=== PATIENT | male | born 1960 ===

== ENCOUNTER 2017-07-09 02:10 | Inpatient (IN) | payer MEDICARE, OTHER ==
[2017-07-09 02:25] VITALS: BMI 28.2
[2017-07-09 04:26] LABS: URINE BILIRUBIN NEGATIVE (NEGATIVE); URINE BLOOD NEGATIVE (NEGATIVE); URINE CLARITY CLEAR (Clear); URINE COLOR YELLOW (YELLOW); URINE GLUCOSE (UA) >=500 mg/dL (Normal); URINE LEUKOCYTE ESTERASE NEG Leu/uL (Negative); URINE NITRATE NEGATIVE (NEGATIVE); URINE PROTEIN NEGATIVE (NEGATIVE); URINE UROBILINOGEN 0.2-1.0 mg/dL (0.2-1.0)
[2017-07-09 04:35] LABS: BASO % 0.4 % (0.0-2.0); EOS % 0.3 % (0.0-4.0); HEMOGLOBIN 13.5 g/dL (12.0-18.0); LYMPH # 1.2 K/uL (1.0-4.3); LYMPH % 10.5 % (20.0-40.0); MEAN CELL VOLUME 84.3 fl (80.0-94.0); MEAN CORPUSCULAR HEMOGLOBIN 29.3 pg (27.0-31.0); MEAN CORPUSCULAR HGB CONC 34.8 g/dL (33.0-37.0); MEAN PLATELET VOLUME 8.9 fl (7.2-11.7); MONO # 0.5 K/uL (0.0-0.8); MONO % 4.2 % (0.0-10.0); NEUT # 9.5 K/uL (1.8-7.0); NEUT % 84.6 % (50.0-75.0); RBC 4.61 Mil/uL (4.40-5.90); RED CELL DISTRIBUTION WIDTH 12.9 % (11.5-14.5); WHITE BLOOD COUNT 11.2 K/uL (4.8-10.8)
[2017-07-09 04:43] LABS: BARBITURATES, UR NEGATIVE (NEGATIVE); BENZODIAZEPINES, UR NEGATIVE (NEGATIVE); OPIATES, UR NEGATIVE (NEGATIVE); PHENCYCLIDINE, UR NEGATIVE (NEGATIVE)
[2017-07-09 04:47] LABS: ALB/GLOB RATIO 1.3 (1.0-2.1); ALBUMIN 4.3 g/dL (3.5-5.0); ALT/SGPT 29 U/L (21-72); AST/SGOT 49 U/L (17-59); BLOOD UREA NITROGEN 6 mg/dl (9-20); CALCIUM 9.2 mg/dL (8.4-10.2); GFR AFRICAN-AMERICAN > 60; GFR NON-AFRICAN AMERICAN > 60; LIPASE 48 U/L (23-300)
--- NOTE | 2017-07-09 05:05 | ED PDOC ---
HPI: Abdomen Time Seen by Provider: 07/09/17 02:54 Chief Complaint (Nursing): Abdominal Pain Chief Complaint (Provider): Abdominal Pain History Per: Patient, Other (Quality Systems Specialist) History/Exam Limitations: clinical condition (Dementia) Current Symptoms Are (Timing): Still Present Associated Symptoms: denies: Fever, Chest Pain Additional Complaint(s): 57 year old male presents to ED with complaints of abdominal pain, nausea, and vomiting and has a past medical history of bipolar disorder and dementia. Patient is brought to the ED for a crisis evaluation. On arrival, patient complains of nausea, vomiting (x1 episode non-bloody, non-bilious), and abdominal pain. (-) fever, cough, SOB, or chest pain. On arrival to ED patient initially denies any medical complaint and appears to be laughing as well as responding to internal stimuli. PCP: Ned Past Medical History Reviewed: Historical Data, Nursing Documentation, Vital Signs Vital Signs: Last Vital Signs Temp 98.0 F 07/09/17 16:13 Pulse 91 H 07/09/17 16:13 Resp 17 07/09/17 16:13 BP 102/65 07/09/17 16:13 Pulse Ox 98 07/09/17 20:04 - Medical History PMH: Bipolar Disorder, Dementia, Multiple Sclerosis Denies: No Chronic Diseases, Diabetes, Hepatitis, HIV, HTN, Chronic Kidney Disease, Seizures, Sexually Transmitted Disease - Family History Family History: States: Unknown Family Hx - Social History Alcohol: Other ((+) drinker) - Immunization History Hx Tetanus Toxoid Vaccination: No Hx Influenza Vaccination: No Hx Pneumococcal Vaccination: No - Home Medications Home Medications: Ambulatory Orders Medication Instructions Recorded Thiamine [Vitamin B1 Tab] 100 mg PO DAILY #0 tab 08/08/14 QUEtiapine [SEROquel] 100 mg PO HS #0 tab 11/23/14 Folic Acid 1 mg PO DAILY 11/22/15 Divalproex [Depakote ER] 500 mg PO BID #0 ter 11/25/15 Folic Acid 1 mg PO DAILY #0 tab 11/25/15 metFORMIN [glucOPHAGE] 500 mg PO BID #60 tab 11/25/15 - Allergies Allergies/Adverse Reactions: Allergies Allergy/AdvReac Type Severity Reaction Status Date / Time No Known Allergies Allergy Verified 11/22/15 14:24 Review of Systems ROS Statement: Except As Marked, All Systems Reviewed And Found Negative Constitutional: Negative for: Fever Cardiovascular: Negative for: Chest Pain Respiratory: Negative for: Cough, Shortness of Breath Gastrointestinal: Positive for: Nausea, Vomiting, Abdominal Pain Physical Exam - Reviewed Nursing Documentation Reviewed: Yes Vital Signs Reviewed: Yes - Physical Exam Appears: Positive for: Non-toxic, No Acute Distress Skin: Positive for: Normal Color, Warm, Dry Eye Exam: Positive for: Normal appearance Cardiovascular/Chest: Positive for: Regular Rate, Rhythm, Tachycardia Respiratory: Positive for: Normal Breath Sounds. Negative for: Respiratory Distress Gastrointestinal/Abdominal: Positive for: Soft, Tenderness (mild epigastric tenderness) Back: Positive for: Normal Inspection Extremity: Positive for: Normal ROM. Negative for: Deformity Neurologic/Psych: Positive for: Alert, Mood/Affect (affect flat), Other ( appears internally preoccupied). Negative for: Oriented (only oriented to person - baseline) - Laboratory Results Result Diagrams: 07/09/17 04:32 07/09/17 04:32 - ECG O2 Sat by Pulse Oximetry: 98 (RA) Pulse Ox Interpretation: Normal - Critical Care Total Time (In Min): 30 Medical Decision Making Medical Decision Makin Initial impression: abdominal pain Initial plan: * EKG * EtOH serum * Labs * UDrug screen * Lipase * UDip * Zofran Inj 4mg IVP * Accucheck * UA * Re-eval 0415 * Crisis eval * Bentyl 20mg PO * Pepcid 20mg IV * Re-eval 0505 Patient denies chest pain. Discussed EKG (sent for his viewing) with Dr. Johsnon (code heart rn lactation), who confers that patient's EKG is not indicative of STEMI. 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 Brother asked patient about chest pain which the patient continued to deny. Discussed case with Dr. Calderon, who accepts patient under his care for OBS TELE - chest pain. * Trop I * CXR * ASA 324mg PO * Morphine 4mg IVP * Nitroglycerin 2% I ea TOP * Re-eval 0607 Troponin: 3.77 Patient continues to deny chest pain however remains a poor historian. It is unclear whether impairment is not allowing patient to understand the questions being asked. * Lovenox 80mg SC, Hmacivehc48 mg po Admission order changed to INPATIENT TELE for ACS. 06 Chest Xray NAD Patient placed on 1:1 due to his psychiatric condition and inability to readily follow instruction. Family has left bedside. Scribe Attestation: Documented by Светлана Mccoy acting as a scribe for Larry Murphy MD. Scribe Attestation: All medical record entries made by the Scribe were at my direction and personally dictated by me. I have reviewed the chart and agree that the record accurately reflects my personal performance of the history, physical exam, medical decision making, and the department course for this patient. I have also personally directed, reviewed, and agree with the discharge instructions and disposition. Disposition - Clinical Impression Clinical Impression: Acute coronary syndrome - Patient ED Disposition Is Patient to be Admitted: Yes - Disposition Disposition Time: 05:20 Condition: GUARDED - Pt Status Changed To: Hospital Disposition Of: Inpatient (OBS TELE) - Admit Certification Admit to Inpatient:: After my assessment, the patient will require hospitalization for at least two midnights. This is because of the severity of symptoms shown, intensity of services needed, and/or the medical risk in this patient being treated as an outpatient.
[2017-07-09] MEDS ORDERED: Morphine 4 MG/ML VIAL IVP ONE (05:06)
[2017-07-09] MEDS ORDERED: Nitroglycerin 2% Ointment Foilpak UD TOP STA (05:19)
[2017-07-09] MEDS ORDERED: Nitroglycerin 2% Ointment Foilpak UD TOP ONE (05:33)
[2017-07-09] MEDS ORDERED: Morphine 4 MG/ML VIAL ONE (05:33)
--- NOTE | 2017-07-09 05:35 | CP.PCM.HP ---
History of Present Illness - History of Present Illness History of Present Illness: CC: Abd pain, nausea, CP; crisis eval HPI: This is a 57 y/o male with HTN, DM2, bipolar and ?dementia among other conditions who was brought in for crisis eval. He did c/o abd pain, CP, n/v in the ER as well. Denies SOB, cough, f/c currently. Patient is a rather poor historian, and unable to provide much other relevant information. Brother who is with him states main complaint has been 'abdominal pain' PCP: Ned ARTEAGA: Patient unable to provide clear info MHx: HTN, DM2, bipolar disorder, ?dementia, ?MS SHx: None Allergies: NKDA Medications: Per med rec Family Hx: Reviewed, patient cannot provide relevant info Social Hx: Lives at home, no tobacco or EtOH Present on Admission - Present on Admission Any Indicators Present on Admission: No Past Patient History - Past Medical History & Family History Past Medical History?: Yes - Past Social History Alcohol: Other ((+) drinker) - CARDIAC Hx Hypertension: No - PULMONARY Hx Tuberculosis: No - NEUROLOGICAL Hx Dementia: Yes Hx Multiple Sclerosis: Yes Hx Seizures: No - HEENT Hx HEENT Problems: No - RENAL Hx Chronic Kidney Disease: No - ENDOCRINE/METABOLIC Hx Endocrine Disorders: Yes Hx Diabetes Mellitus Type 2: Yes - HEMATOLOGICAL/ONCOLOGICAL Hx Human Immunodeficiency Virus (HIV): No - INTEGUMENTARY Hx Dermatological Problems: No - MUSCULOSKELETAL/RHEUMATOLOGICAL Hx Falls: No - GASTROINTESTINAL Hx Gastrointestinal Disorders: No - GENITOURINARY/GYNECOLOGICAL Hx Sexually Transmitted Disorders: No - PSYCHIATRIC Hx Bipolar Disorder: Yes - SURGICAL HISTORY Hx Surgeries: (unable to obtain) - ANESTHESIA Hx Anesthesia: (unknown) Meds Allergies/Adverse Reactions: Allergies Allergy/AdvReac Type Severity Reaction Status Date / Time No Known Allergies Allergy Verified 11/22/15 14:24 Physical Exam - Constitutional Appears: No Acute Distress - Head Exam Head Exam: ATRAUMATIC, NORMOCEPHALIC - Eye Exam Eye Exam: EOMI, PERRL - ENT Exam ENT Exam: Mucous Membranes Moist - Neck Exam Neck exam: Positive for: Full Rom - Respiratory Exam Respiratory Exam: Clear to Auscultation Bilateral, NORMAL BREATHING PATTERN - Cardiovascular Exam Cardiovascular Exam: REGULAR RHYTHM, +S1, +S2 - GI/Abdominal Exam GI & Abdominal Exam: Normal Bowel Sounds, Soft, Tenderness - Extremities Exam Extremities exam: Positive for: full ROM, normal inspection - Neurological Exam Additional comments: Patient is awake, answers some questions but mostly not - Psychiatric Exam Psychiatric exam: Normal Affect, Normal Mood - Skin Skin Exam: Dry, Warm Results - Vital Signs Recent Vital Signs: Last Vital Signs Temp 98.2 F 07/09/17 02:25 Pulse 116 H 07/09/17 02:25 Resp 16 07/09/17 02:25 BP 198/101 H 07/09/17 02:25 Pulse Ox 98 07/09/17 05:25 - Labs Result Diagrams: 07/09/17 04:32 07/09/17 04:32 Labs: Laboratory Results - last 24 hr 07/09/17 07/09/17 07/09/17 04:19 04:19 04:32 WBC RBC Hgb Hct MCV MCH MCHC RDW Plt Count MPV Neut % (Auto) Lymph % (Auto) [place] % (Auto) Eos % (Auto) Baso % (Auto) Neut # (Auto) Lymph # (Auto) [place] # (Auto) Eos # (Auto) Baso # (Auto) Sodium 134 Potassium 3.8 Chloride 98 Carbon Dioxide 22 Anion Gap 18 BUN 6 L Creatinine 0.7 L Est GFR ( Amer) > 60 Est GFR (Non-Af Amer) > 60 POC Glucose (mg/dL) Random Glucose 247 H Calcium 9.2 Total Bilirubin 0.7 AST 49 ALT 29 Alkaline Phosphatase 56 Total Protein 7.7 Albumin 4.3 Globulin 3.4 Albumin/Globulin Ratio 1.3 Lipase 48 Urine Color Yellow Urine Clarity Clear Urine pH 6.0 Ur Specific [place] 1.014 Urine Protein Negative Urine Glucose (UA) >=500 Urine Ketones Negative Urine Blood Negative Urine Nitrate Negative Urine Bilirubin Negative Urine Urobilinogen 0.2-1.0 Ur Leukocyte Esterase Neg Urine RBC (Auto) 2 Urine Microscopic WBC < 1 Urine Opiates Screen Negative Urine Methadone Screen Negative Ur Barbiturates Screen Negative Ur Phencyclidine Scrn Negative Ur Amphetamines Screen Negative U Benzodiazepines Scrn Negative U Oth Cocaine Metabols Negative U Cannabinoids Screen Negative Alcohol, Quantitative < 10 07/09/17 07/09/17 04:32 05:15 WBC 11.2 H D RBC 4.61 Hgb 13.5 Hct 38.9 MCV 84.3 D MCH 29.3 MCHC 34.8 RDW 12.9 Plt Count 231 MPV 8.9 Neut % (Auto) 84.6 H Lymph % (Auto) 10.5 L [place] % (Auto) 4.2 Eos % (Auto) 0.3 Baso % (Auto) 0.4 Neut # (Auto) 9.5 H Lymph # (Auto) 1.2 [place] # (Auto) 0.5 Eos # (Auto) 0.0 Baso # (Auto) 0.0 Sodium Potassium Chloride Carbon Dioxide Anion Gap BUN Creatinine Est GFR ( Amer) Est GFR (Non-Af Amer) POC Glucose (mg/dL) 213 H Random Glucose Calcium Total Bilirubin AST ALT Alkaline Phosphatase Total Protein Albumin Globulin Albumin/Globulin Ratio Lipase Urine Color Urine Clarity Urine pH Ur Specific [place] Urine Protein Urine Glucose (UA) Urine Ketones Urine Blood Urine Nitrate Urine Bilirubin Urine Urobilinogen Ur Leukocyte Esterase Urine RBC (Auto) Urine Microscopic WBC Urine Opiates Screen Urine Methadone Screen Ur Barbiturates Screen Ur Phencyclidine Scrn Ur Amphetamines Screen U Benzodiazepines Scrn U Oth Cocaine Metabols U Cannabinoids Screen Alcohol, Quantitative - EKG Data EKG Interpreted by: Myself EKG shows normal: Sinus rhythm Rate: Normal - Impressions Impression: EKG with some later ST changes that appear concerning but no stemi per cardiology - Imaging and Cardiology Chest x-ray Status: Pending Assessment & Plan (1) Chest pain Assessment and Plan: 57 y/o male with mult medical conditions with c/o CP and abd pain; also with bipolar symptoms. 1) CP/Abd pain, +troponins -Tele obs -Serial trops -Echo this AM -Cont ASA for now; add b-carlos, high dose statin and 1 mg/kg lovenox BID -Cardiology consult this AM -Zofran IV for nausea -PRN medications for abd discomfort 2) Bipolar -- cont home meds; may need further psych eval/hospitalization 3) DM2 -- accucheck, SSI, DM2 diet 4) HTN -- cont home medications 5) DVT PPx -- Patient on therapeutic lovenox Status: Acute (2) Abdominal pain Status: Acute (3) DM2 (diabetes mellitus, type 2) Status: Acute (4) Hypertension Status: Suspected Priority: Low
[2017-07-09] MEDS ORDERED: Enoxaparin 80 mg Syringe SC STA (06:06)
--- NOTE | 2017-07-09 08:27 | CP.PCM.CON ---
History of Present Illness - History of Present Illness History of Present Illness: This 57-year-old man was brought to the emergency room for crisis evaluation. An abnormal electrocardiogram prompted further questions regarding chest pain which the patient denies. The patient does not appear to be in any distress. He does not seem to be fully aware of his surroundings but answers simple questions in a rambling way. On repeatedly asking about chest discomfort or chest pain patient denies any discomfort at this point. he also does not appear to be in any distress. Review of emergency room notes and previous evaluations indicate him to be a diabetic and hypertensive as well as having bipolar disorder. Physical examination shows a middle aged -[place] male who is able to lay virtually flat in bed and breathe comfortably and again does not appear to be in any distress. He has a heart rate of 100 bpm regular and a blood pressure of 124/78 mmHg. His jugular venous pressure was not elevated and there was no edema over his lower extremities. The pedal pulses were well felt. There were no carotid bruits. His extremities were warm and his nailbeds were inked. There was no central or peripheral cyanosis. The apex was not palpable. The first and second heart sounds are normal. There was no gallop rhythm there were no murmurs and there was no pericardial rub. His abdomen was soft and liver and spleen are not palpable. His electrocardiogram at admission at 5 in the morning shows sinus rhythm with ST elevation in leads V4 V5 and V6 with upward coving. An electrocardiogram done at 8:09 AM 3 hours after the initial electro-cardiogram is continues to show similar pattern with no evolution off Q waves or inversion of T waves which would be expected with evolving anterior wall myocardial infarction. The troponin at admission was elevated. The rest of his labs were noted. Impression: Doubt acute myocardial infarction in this patient. Clinical presentation and the electrocardiogram is suggestive of possible pericarditis with abnormal troponin as a result of myocardial inflammation with pericarditis. The patient is hemodynamically stable and is scheduled to undergo an echocardiogram with anterior wall motion would be evaluated. Past Patient History - Past Medical History & Family History Past Medical History?: Yes - Past Social History Alcohol: Other ((+) drinker) - CARDIAC Hx Hypertension: No - PULMONARY Hx Tuberculosis: No - NEUROLOGICAL Hx Dementia: Yes Hx Multiple Sclerosis: Yes Hx Seizures: No - HEENT Hx HEENT Problems: No - RENAL Hx Chronic Kidney Disease: No - ENDOCRINE/METABOLIC Hx Endocrine Disorders: Yes Hx Diabetes Mellitus Type 2: Yes - HEMATOLOGICAL/ONCOLOGICAL Hx Human Immunodeficiency Virus (HIV): No - INTEGUMENTARY Hx Dermatological Problems: No - MUSCULOSKELETAL/RHEUMATOLOGICAL Hx Falls: No - GASTROINTESTINAL Hx Gastrointestinal Disorders: No - GENITOURINARY/GYNECOLOGICAL Hx Sexually Transmitted Disorders: No - PSYCHIATRIC Hx Bipolar Disorder: Yes - SURGICAL HISTORY Hx Surgeries: (unable to obtain) - ANESTHESIA Hx Anesthesia: (unknown) Meds Allergies/Adverse Reactions: Allergies Allergy/AdvReac Type Severity Reaction Status Date / Time No Known Allergies Allergy Verified 11/22/15 14:24 - Medications Medications: Current Medications Acetaminophen (Tylenol 325mg Tab) 650 mg PO Q6 PRN PRN Reason: Pain, Mild (1-3) Aspirin (Aspirin) 325 mg PO DAILY [facility] Last Admin: 07/09/17 07:39 Dose: Not Given Atorvastatin Calcium (Lipitor) 80 mg PO DAILY [facility] Last Admin: 07/09/17 07:52 Dose: 80 mg Clopidogrel Bisulfate (Plavix) 75 mg PO DAILY [facility] Divalproex Sodium (Depakote Er(Once Daily)) 500 mg PO BID [facility] Enoxaparin Sodium (Lovenox) 80 mg SC Q12 [facility] PRN Reason: Protocol Folic Acid (Folic Acid) 1 mg PO DAILY [facility] Insulin Human Lispro (Humalog) 0 units SC ACHS [facility] PRN Reason: Protocol Metoprolol Tartrate (Lopressor) 25 mg PO Q12 [facility] Ondansetron HCl (Zofran Inj) 4 mg IVP Q6 PRN PRN Reason: Nausea/Vomiting Quetiapine Fumarate (Seroquel) 100 mg PO HS [facility] Thiamine HCl (Vitamin B1 Tab) 100 mg PO DAILY [facility] Results - Vital Signs Recent Vital Signs: Last Vital Signs Temp 98.1 F 07/09/17 07:42 Pulse 104 H 07/09/17 07:42 Resp 21 07/09/17 07:42 BP 141/100 H 07/09/17 07:42 Pulse Ox 96 07/09/17 07:42 - Labs Result Diagrams: 07/09/17 04:32 07/09/17 04:32 Labs: Laboratory Results - last 24 hr 07/09/17 07/09/17 07/09/17 04:19 04:19 04:32 WBC RBC Hgb Hct MCV MCH MCHC RDW Plt Count MPV Neut % (Auto) Lymph % (Auto) [place] % (Auto) Eos % (Auto) Baso % (Auto) Neut # (Auto) Lymph # (Auto) [place] # (Auto) Eos # (Auto) Baso # (Auto) Sodium 134 Potassium 3.8 Chloride 98 Carbon Dioxide 22 Anion Gap 18 BUN 6 L Creatinine 0.7 L Est GFR ( Amer) > 60 Est GFR (Non-Af Amer) > 60 POC Glucose (mg/dL) Random Glucose 247 H Calcium 9.2 Total Bilirubin 0.7 AST 49 ALT 29 Alkaline Phosphatase 56 Troponin I Total Protein 7.7 Albumin 4.3 Globulin 3.4 Albumin/Globulin Ratio 1.3 Lipase 48 Urine Color Yellow Urine Clarity Clear Urine pH 6.0 Ur Specific [place] 1.014 Urine Protein Negative Urine Glucose (UA) >=500 Urine Ketones Negative Urine Blood Negative Urine Nitrate Negative Urine Bilirubin Negative Urine Urobilinogen 0.2-1.0 Ur Leukocyte Esterase Neg Urine RBC (Auto) 2 Urine Microscopic WBC < 1 Urine Opiates Screen Negative Urine Methadone Screen Negative Ur Barbiturates Screen Negative Ur Phencyclidine Scrn Negative Ur Amphetamines Screen Negative U Benzodiazepines Scrn Negative U Oth Cocaine Metabols Negative U Cannabinoids Screen Negative Alcohol, Quantitative < 10 07/09/17 07/09/17 07/09/17 04:32 05:15 05:22 WBC 11.2 H D RBC 4.61 Hgb 13.5 Hct 38.9 MCV 84.3 D MCH 29.3 MCHC 34.8 RDW 12.9 Plt Count 231 MPV 8.9 Neut % (Auto) 84.6 H Lymph % (Auto) 10.5 L [place] % (Auto) 4.2 Eos % (Auto) 0.3 Baso % (Auto) 0.4 Neut # (Auto) 9.5 H Lymph # (Auto) 1.2 [place] # (Auto) 0.5 Eos # (Auto) 0.0 Baso # (Auto) 0.0 Sodium Potassium Chloride Carbon Dioxide Anion Gap BUN Creatinine Est GFR ( Amer) Est GFR (Non-Af Amer) POC Glucose (mg/dL) 213 H Random Glucose Calcium Total Bilirubin AST ALT Alkaline Phosphatase Troponin I 3.7700 H* Total Protein Albumin Globulin Albumin/Globulin Ratio Lipase Urine Color Urine Clarity Urine pH Ur Specific [place] Urine Protein Urine Glucose (UA) Urine Ketones Urine Blood Urine Nitrate Urine Bilirubin Urine Urobilinogen Ur Leukocyte Esterase Urine RBC (Auto) Urine Microscopic WBC Urine Opiates Screen Urine Methadone Screen Ur Barbiturates Screen Ur Phencyclidine Scrn Ur Amphetamines Screen U Benzodiazepines Scrn U Oth Cocaine Metabols U Cannabinoids Screen Alcohol, Quantitative 07/09/17 08:02 WBC RBC Hgb Hct MCV MCH MCHC RDW Plt Count MPV Neut % (Auto) Lymph % (Auto) [place] % (Auto) Eos % (Auto) Baso % (Auto) Neut # (Auto) Lymph # (Auto) [place] # (Auto) Eos # (Auto) Baso # (Auto) Sodium Potassium Chloride Carbon Dioxide Anion Gap BUN Creatinine Est GFR ( Amer) Est GFR (Non-Af Amer) POC Glucose (mg/dL) 224 H Random Glucose Calcium Total Bilirubin AST ALT Alkaline Phosphatase Troponin I Total Protein Albumin Globulin Albumin/Globulin Ratio Lipase Urine Color Urine Clarity Urine pH Ur Specific [place] Urine Protein Urine Glucose (UA) Urine Ketones Urine Blood Urine Nitrate Urine Bilirubin Urine Urobilinogen Ur Leukocyte Esterase Urine RBC (Auto) Urine Microscopic WBC Urine Opiates Screen Urine Methadone Screen Ur Barbiturates Screen Ur Phencyclidine Scrn Ur Amphetamines Screen U Benzodiazepines Scrn U Oth Cocaine Metabols U Cannabinoids Screen Alcohol, Quantitative
[2017-07-09] MEDS: Insulin Lispro (humaLOG) 100 Units/ml Inj SC SCH ×4 (08:56→23:01)
[2017-07-09] MEDS ORDERED: Divalproex 500 mg ER (ONCE DAILY formulation) PO SCH (09:00)
[2017-07-09] MEDS ORDERED: Enoxaparin 40 mg Syringe SC SCH (09:00)
[2017-07-09] MEDS ORDERED: Perflutren Lipid Microsphere 1.5 ML SUS IV ONE (09:24)
--- NOTE | 2017-07-09 09:32 | RAD ---
HISTORY: chest pain COMPARISON: Chest radiograph dated 08/08/2014 FINDINGS: LUNGS: No active pulmonary disease. PLEURA: Stable eventration of the right hemidiaphragm No significant pleural effusion identified, no pneumothorax apparent. CARDIOVASCULAR: Normal. OSSEOUS STRUCTURES: Unchanged. VISUALIZED UPPER ABDOMEN: Normal. OTHER FINDINGS: None. IMPRESSION: No active disease.
[2017-07-09 10:50] LABS: INR 1.1 (0.9-1.2); PARTIAL THROMBOPLASTIN TIME 36.1 Seconds (25.6-37.1); PROTHROMBIN TIME 12.2 Seconds (9.8-13.1)
[2017-07-09] MEDS: Enoxaparin 80 mg Syringe SC SCH ×2 (13:41→22:03)
[2017-07-09] MEDS ORDERED: Pneumococcal 23-Valent Vaccine IM ONE (13:43)
[2017-07-09] MEDS ORDERED: Influenza Vaccine 18yr & older 0.5 ML/45 MCG SYR IM ONE (13:43)
--- NOTE | 2017-07-09 16:25 | CARD ---
APPROVED REPORT EXAM: Two-dimensional and M-mode echocardiogram with Doppler, color Doppler with contrast. Other Information Quality : GoodRhythm : NSR INDICATION Non STEMI Echo Enhancing Agent Indication: Endocardial border delineation Agent/Amount Used: Definity 2D DIMENSIONS IVSd0.92 (0.7-1.1cm)LVDd4.08 (3.9-5.9cm) PWd0.85 (0.7-1.1cm)IVSs1.07 (0.8-1.2cm) LVDs3.30 (2.5-4.0cm)FS (%) 19.1 % PWs0.87 (0.8-1.2cm)LVEF (%)30.0 (>50%) M-Mode DIMENSIONS Left Atrium (MM)2.94 (2.5-4.0cm)Aortic Root3.12 (2.2-3.7cm) Aortic Cusp Exc.1.65 (1.5-2.0cm) Mitral Valve MV E Zshclfja27.2cm/sMV DECEL [id number] A Zxqyreuy88.0cm/s MV JBU83pgY/A ratio0.6MVA (PHT)3.13cm2 TDI Lateral E' Peak V6.27cm/sMedial E' Peak V5.38cm/sE/Lateral E'7.2 E/Medial E'8.4 Tricuspid Valve TR Peak Floyntej698fn/sRAP [id number] Peak Gr.17mmHg [id number] LEFT VENTRICLE The left ventricle is normal size. There is normal left ventricular wall thickness. The systolic function is severely impaired. 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 Cannot rule out thrombus in left Ventricle. RIGHT VENTRICLE The right ventricle is normal size. There is normal right ventricular wall thickness. The right ventricular systolic function is normal. ATRIA The left atrium size is normal. The right atrium size is normal. AORTIC VALVE The aortic valve is mildly thickened. There is trace aortic regurgitation. There is no aortic valvular stenosis. MITRAL VALVE The mitral valve is mildly thickened. There is no mitral valve stenosis. Mitral regurgitation is trace. TRICUSPID VALVE The tricuspid valve is normal in structure. There is no tricuspid valve regurgitation noted. PULMONIC VALVE The pulmonary valve is normal in structure. There is no pulmonic valvular regurgitation. GREAT VESSELS The aortic root is normal in size. The IVC is normal in size and collapses >50% with inspiration. PERICARDIAL EFFUSION The pericardium appears normal. <Conclusion> The left ventricle is normal size. There is normal left ventricular wall thickness. The systolic function is severely impaired. 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 Cannot rule out thrombus in left Ventricle.
--- NOTE | 2017-07-09 18:58 | CARD ---
APPROVED REPORT EKG Measurement Heart [id number] [place] [id number] <Conclusion> Normal sinus rhythm Possible Inferior infarct, age undetermined T wave abnormality, consider anterolateral ischemia Prolonged QT Abnormal ECG
--- NOTE | 2017-07-09 19:03 | CARD ---
APPROVED REPORT EKG Measurement Heart [id number] [place] [id number] <Conclusion> Normal sinus rhythm ST elevation, consider anterolateral injury or acute infarct ACUTE TX / STEMI Abnormal ECG
[2017-07-09] MEDS ORDERED: Enoxaparin 80 mg Syringe SC SCH (21:00)
--- NOTE | 2017-07-10 08:52 | CP.PCM.PN ---
Subjective - Date & Time of Evaluation Date of Evaluation: 07/10/17 Time of Evaluation: 08:52 - Subjective Subjective: Pt seen and examined at bedside laying comfortably. Currently not completely coherent. When asked specific questions, he would respond "si" or respond with a different body part than specifically asked. He also had change in response from questions asked repeatedly. Currently responded that he is at home. ROS was not able to be adequately accessed. Pt has been a poor historian since admission. Objective - Vital Signs/Intake and Output Vital Signs (last 24 hours): Temp Pulse Resp BP Pulse Ox 97.3 F L 88 18 94/64 L 99 07/10/17 08:00 07/10/17 08:00 07/10/17 08:00 07/10/17 08:00 07/10/17 08:00 - Medications Medications: Current Medications Acetaminophen (Tylenol 325mg Tab) 650 mg PO Q6 PRN PRN Reason: Pain, Mild (1-3) Aspirin (Aspirin) 325 mg PO DAILY [facility] Last Admin: 07/09/17 07:39 Dose: Not Given Atorvastatin Calcium (Lipitor) 80 mg PO DAILY [facility] Last Admin: 07/09/17 07:52 Dose: 80 mg Clopidogrel Bisulfate (Plavix) 75 mg PO DAILY [facility] Last Admin: 07/09/17 13:42 Dose: 75 mg Divalproex Sodium (Depakote Dr(*Bid*)) 500 mg PO BID [facility] Enoxaparin Sodium (Lovenox) 80 mg SC Q12 [facility] PRN Reason: Protocol Last Admin: 07/09/17 22:03 Dose: 80 mg Folic Acid (Folic Acid) 1 mg PO DAILY [facility] Last Admin: 07/09/17 08:58 Dose: 1 mg Insulin Human Lispro (Humalog) 0 units SC ACHS [facility] PRN Reason: Protocol Last Admin: 07/09/17 23:01 Dose: Not Given Metoprolol Tartrate (Lopressor) 25 mg PO Q12 [facility] Last Admin: 07/09/17 22:03 Dose: 25 mg Ondansetron HCl (Zofran Inj) 4 mg IVP Q6 PRN PRN Reason: Nausea/Vomiting Quetiapine Fumarate (Seroquel) 100 mg PO HS [facility] Last Admin: 07/09/17 22:05 Dose: 100 mg Thiamine HCl (Vitamin B1 Tab) 100 mg PO DAILY [facility] Last Admin: 07/09/17 08:58 Dose: 100 mg - Labs Labs: 07/09/17 04:32 07/09/17 04:32 PT 12.2 Seconds (9.8-13.1) 07/09/17 10:25 INR 1.1 (0.9-1.2) 07/09/17 10:25 APTT 36.1 Seconds (25.6-37.1) 07/09/17 10:25 - Constitutional Appears: No Acute Distress, Confused - Eye Exam Eye Exam: EOMI - Neck Exam Neck Exam: Full ROM - Respiratory Exam Respiratory Exam: Clear to Ausculation Bilateral, NORMAL BREATHING PATTERN. absent: Wheezes - Cardiovascular Exam Cardiovascular Exam: +S1, +S2 - GI/Abdominal Exam GI & Abdominal Exam: Soft, Normal Bowel Sounds. absent: Tenderness - Extremities Exam Extremities Exam: absent: Calf Tenderness - Neurological Exam Neurological Exam: Alert, Altered, Awake. absent: Oriented x3 Assessment and Plan - Assessment and Plan (Free Text) Plan: 57 yo M with pmhx of HTN, DM2, bipolar presented with NSTEMI 1) NSTEMI - Tele - EKG: ST elevation; consider Rogerio-lateral injury or acute infarct - Troponins: 3.77>16.90>32.10 - ECHO: Systolic function severely impaired; Aneurismal and severely hypokinetic apex/anterior wall - Cardiology: Dr. Martinez: EKG: evolving T inversion at V3 and V4, which is expected s/p AMI. Continue Beta Sadie, ASA, Plavix. Stable 2) Dementia with behavioral disturbances - Psych: Dr. Gallegos: Recommends r/o Delirium on top of dementia; and social work specialist to discuss with brother since pt will likely require assistance with activities of daily living. - Continue meds: Depakote 500 mg PO BID; Quetiapine 100 mg PO HS; Haldol 1mg PO Q6 PRN for agitation 3) DM2 - controlled with SSI - accucheck with insulin human lispro - DM2 appropriate diet 4) HTN - Continue: Metoprolol Tartrate - Monitor BP 5) Prophylaxis - DVT: Enoxaparin 80 mg sc q12
--- NOTE | 2017-07-10 09:16 | CARD ---
APPROVED REPORT EKG Measurement Heart [id number] <Conclusion> Sinus tachycardia ST elevation, consider anterolateral injury or acute infarct ACUTE MD / STEMI Abnormal ECG
[2017-07-10] MEDS: Enoxaparin 80 mg Syringe SC SCH ×2 (09:53→22:07)
[2017-07-10] MEDS: Divalproex 500 mg DR(BID formulation) PO SCH ×2 (09:54→17:00)
[2017-07-10] MEDS: Insulin Lispro (humaLOG) 100 Units/ml Inj SC SCH ×4 (09:55→22:08)
--- NOTE | 2017-07-10 10:20 | CP.PCM.PN ---
Subjective - Date & Time of Evaluation Date of Evaluation: 07/10/17 Time of Evaluation: 09:00 - Subjective Subjective: Resting comfortably in the bed Denies any discomfort, breathes comfortably at 16 BPM HR 80 BPM, reg BP 102/72 mm HG JVP flat, no oedema over feet Chest clear, no gallop, no rales EKG shows evolving T inversion in V3 to V4 (as expected following AMI 24 hrs back) No evidence of CHF Pt on betablocker, ASA and Plavix and Lovenox Stable from cardiac point of view. Objective - Vital Signs/Intake and Output Vital Signs (last 24 hours): Temp Pulse Resp BP Pulse Ox 97.3 F L 88 18 94/64 L 99 07/10/17 08:00 07/10/17 09:52 07/10/17 08:00 07/10/17 09:52 07/10/17 08:00 - Medications Medications: Current Medications Acetaminophen (Tylenol 325mg Tab) 650 mg PO Q6 PRN PRN Reason: Pain, Mild (1-3) Aspirin (Aspirin) 325 mg PO DAILY [facility] Last Admin: 07/10/17 09:57 Dose: 325 mg Atorvastatin Calcium (Lipitor) 80 mg PO DAILY [facility] Last Admin: 07/10/17 09:54 Dose: 80 mg Clopidogrel Bisulfate (Plavix) 75 mg PO DAILY [facility] Last Admin: 07/10/17 09:53 Dose: 75 mg Divalproex Sodium (Depakote Dr(*Bid*)) 500 mg PO BID [facility] Last Admin: 07/10/17 09:54 Dose: 500 mg Enoxaparin Sodium (Lovenox) 80 mg SC Q12 [facility] PRN Reason: Protocol Last Admin: 07/10/17 09:53 Dose: 80 mg Folic Acid (Folic Acid) 1 mg PO DAILY [facility] Last Admin: 07/10/17 09:54 Dose: 1 mg Insulin Human Lispro (Humalog) 0 units SC ACHS [facility] PRN Reason: Protocol Last Admin: 07/10/17 09:55 Dose: Not Given Metoprolol Tartrate (Lopressor) 25 mg PO Q12 [facility] Last Admin: 07/10/17 09:52 Dose: Not Given Ondansetron HCl (Zofran Inj) 4 mg IVP Q6 PRN PRN Reason: Nausea/Vomiting Quetiapine Fumarate (Seroquel) 100 mg PO HS [facility] Last Admin: 07/09/17 22:05 Dose: 100 mg Thiamine HCl (Vitamin B1 Tab) 100 mg PO DAILY [facility] Last Admin: 07/10/17 09:53 Dose: 100 mg - Labs Labs: 07/09/17 04:32 07/09/17 04:32 PT 12.2 Seconds (9.8-13.1) 07/09/17 10:25 INR 1.1 (0.9-1.2) 07/09/17 10:25 APTT 36.1 Seconds (25.6-37.1) 07/09/17 10:25
--- NOTE | 2017-07-10 13:24 | CP.PCM.CON ---
History of Present Illness - History of Present Illness History of Present Illness: pt is a 57 y/o male with HTN, DM2, bipolar and dementia who was brought in for evaluation for abdominal pain, pt reportedly has been irritable and agitated yesterday as of today no reported behavioral diturbances, on evaluation pt seen sleeping in bed , oriented to person only no current episodes of agitation Past Patient History - Past Medical History & Family History Past Medical History?: Yes - Past Social History Alcohol: Other ((+) drinker) - CARDIAC Hx Hypertension: No - PULMONARY Hx Tuberculosis: No - NEUROLOGICAL Hx Dementia: Yes Hx Multiple Sclerosis: Yes Hx Seizures: No - HEENT Hx HEENT Problems: No - RENAL Hx Chronic Kidney Disease: No - ENDOCRINE/METABOLIC Hx Endocrine Disorders: Yes Hx Diabetes Mellitus Type 2: Yes - HEMATOLOGICAL/ONCOLOGICAL Hx Human Immunodeficiency Virus (HIV): No - INTEGUMENTARY Hx Dermatological Problems: No - MUSCULOSKELETAL/RHEUMATOLOGICAL Hx Falls: No (unknown) Hx Unsteady Gait: Yes - GASTROINTESTINAL Hx Gastrointestinal Disorders: No - GENITOURINARY/GYNECOLOGICAL Hx Sexually Transmitted Disorders: No - PSYCHIATRIC Hx Bipolar Disorder: Yes - SURGICAL HISTORY Hx Surgeries: (unable to obtain) - ANESTHESIA Hx Anesthesia: (unknown) Meds Allergies/Adverse Reactions: Allergies Allergy/AdvReac Type Severity Reaction Status Date / Time No Known Allergies Allergy Verified 11/22/15 14:24 - Medications Medications: Current Medications Acetaminophen (Tylenol 325mg Tab) 650 mg PO Q6 PRN PRN Reason: Pain, Mild (1-3) Aspirin (Aspirin) 325 mg PO DAILY [facility] Last Admin: 07/10/17 09:57 Dose: 325 mg Atorvastatin Calcium (Lipitor) 80 mg PO DAILY [facility] Last Admin: 07/10/17 09:54 Dose: 80 mg Clopidogrel Bisulfate (Plavix) 75 mg PO DAILY [facility] Last Admin: 07/10/17 09:53 Dose: 75 mg Divalproex Sodium (Depakote Dr(*Bid*)) 500 mg PO BID [facility] Last Admin: 07/10/17 09:54 Dose: 500 mg Enoxaparin Sodium (Lovenox) 80 mg SC Q12 [facility] PRN Reason: Protocol Last Admin: 07/10/17 09:53 Dose: 80 mg Folic Acid (Folic Acid) 1 mg PO DAILY [facility] Last Admin: 07/10/17 09:54 Dose: 1 mg Insulin Human Lispro (Humalog) 0 units SC ACHS [facility] PRN Reason: Protocol Last Admin: 07/10/17 09:55 Dose: Not Given Metoprolol Tartrate (Lopressor) 25 mg PO Q12 [facility] Last Admin: 07/10/17 09:52 Dose: Not Given Ondansetron HCl (Zofran Inj) 4 mg IVP Q6 PRN PRN Reason: Nausea/Vomiting Quetiapine Fumarate (Seroquel) 100 mg PO HS [facility] Last Admin: 07/09/17 22:05 Dose: 100 mg Thiamine HCl (Vitamin B1 Tab) 100 mg PO DAILY [facility] Last Admin: 07/10/17 09:53 Dose: 100 mg Physical Exam - Psychiatric Exam Additional comments: pt seen in bed sleeping , poor eye contact speech underproductive , appears sedated, unable to further assess mental status Results - Vital Signs Recent Vital Signs: Last Vital Signs Temp 97.3 F L 07/10/17 08:00 Pulse 88 07/10/17 09:52 Resp 18 07/10/17 08:00 BP 94/64 L 07/10/17 09:52 Pulse Ox 99 07/10/17 08:00 - Labs Result Diagrams: 07/09/17 04:32 07/09/17 04:32 Labs: Laboratory Results - last 24 hr 07/09/17 07/09/17 07/09/17 15:57 20:18 22:37 POC Glucose (mg/dL) 133 H 122 H Troponin I 32.1000 H* 07/10/17 07/10/17 05:58 10:38 POC Glucose (mg/dL) 156 H 102 Troponin I Assessment & Plan - Assessment and Plan (Free Text) Assessment: dementia with behavioral disturbances hx of bipolar disorder rule out delirium on top of dementia Plan: recommend continue with depakote and seroquel haldol 1mg po q6 prn for agitation social sciences chair to discuss with brother discharge plan as pt at current mental ststus confused and would require assistance with activities of daily living
[2017-07-11] MEDS: Enoxaparin 80 mg Syringe SC SCH ×3 (00:02→22:44)
[2017-07-11 06:24] LABS: HEMOGLOBIN 13.6 g/dL (12.0-18.0); MEAN CELL VOLUME 85.1 fl (80.0-94.0); MEAN CORPUSCULAR HEMOGLOBIN 29.3 pg (27.0-31.0); MEAN CORPUSCULAR HGB CONC 34.5 g/dL (33.0-37.0); RBC 4.65 Mil/uL (4.40-5.90); RED CELL DISTRIBUTION WIDTH 13.4 % (11.5-14.5)
[2017-07-11] MEDS: Insulin Lispro (humaLOG) 100 Units/ml Inj SC SCH ×5 (06:52→22:43)
[2017-07-11 07:03] LABS: BLOOD UREA NITROGEN 12 mg/dl (9-20); CALCIUM 8.5 mg/dL (8.4-10.2); GFR AFRICAN-AMERICAN > 60; GFR NON-AFRICAN AMERICAN > 60
--- NOTE | 2017-07-11 08:30 | CP.PCM.PN ---
Subjective - Date & Time of Evaluation Date of Evaluation: 07/11/17 Time of Evaluation: 08:00 - Subjective Subjective: Pt denies any CP no SOB no abd pain no N/V no fever Pt is calm at present however requires assistance for ADLs Objective - Vital Signs/Intake and Output Vital Signs (last 24 hours): Temp Pulse Resp BP Pulse Ox 97.7 F 100 H 18 95/63 L 97 07/11/17 08:15 07/11/17 08:15 07/11/17 08:15 07/11/17 08:15 07/11/17 08:15 - Medications Medications: Current Medications Acetaminophen (Tylenol 325mg Tab) 650 mg PO Q6 PRN PRN Reason: Pain, Mild (1-3) Aspirin (Aspirin) 325 mg PO DAILY [facility] Last Admin: 07/10/17 09:57 Dose: 325 mg Atorvastatin Calcium (Lipitor) 80 mg PO DAILY [facility] Last Admin: 07/10/17 09:54 Dose: 80 mg Clopidogrel Bisulfate (Plavix) 75 mg PO DAILY [facility] Last Admin: 07/10/17 09:53 Dose: 75 mg Divalproex Sodium (Depakote Dr(*Bid*)) 500 mg PO BID [facility] Last Admin: 07/10/17 17:00 Dose: Not Given Enoxaparin Sodium (Lovenox) 80 mg SC Q12 [facility] PRN Reason: Protocol Last Admin: 07/11/17 00:02 Dose: 80 mg Folic Acid (Folic Acid) 1 mg PO DAILY [facility] Last Admin: 07/10/17 09:54 Dose: 1 mg Haloperidol (Haldol) 1 mg PO Q6 PRN PRN Reason: Agitation Insulin Human Lispro (Humalog) 0 units SC [facility] PRN Reason: Protocol Last Admin: 07/11/17 06:52 Dose: Not Given Metoprolol Tartrate (Lopressor) 25 mg PO Q12 [facility] Last Admin: 07/10/17 21:04 Dose: Not Given Ondansetron HCl (Zofran Inj) 4 mg IVP Q6 PRN PRN Reason: Nausea/Vomiting Potassium Chloride (K-Dur 20 Meq Er Tab) 20 meq PO ONCE ONE Stop: 07/11/17 08:27 Quetiapine Fumarate (Seroquel) 100 mg PO HS [facility] Last Admin: 07/11/17 00:01 Dose: 100 mg Quetiapine Fumarate (Seroquel) 50 mg PO STAT [facility] Stop: 07/11/17 08:30 Thiamine HCl (Vitamin B1 Tab) 100 mg PO DAILY [facility] Last Admin: 07/10/17 09:53 Dose: 100 mg - Labs Labs: 07/11/17 05:02 07/11/17 05:02 PT 12.2 Seconds (9.8-13.1) 07/09/17 10:25 INR 1.1 (0.9-1.2) 07/09/17 10:25 APTT 36.1 Seconds (25.6-37.1) 07/09/17 10:25 - Constitutional Appears: No Acute Distress - Head Exam Head Exam: NORMAL INSPECTION, NORMOCEPHALIC - Eye Exam Eye Exam: EOMI, Normal appearance Pupil Exam: NORMAL ACCOMODATION - ENT Exam ENT Exam: Mucous Membranes Moist, Normal External Ear Exam - Neck Exam Neck Exam: Full ROM. absent: Meningismus - Respiratory Exam Respiratory Exam: NORMAL BREATHING PATTERN. absent: Respiratory Distress - Cardiovascular Exam Cardiovascular Exam: REGULAR RHYTHM, +S1, +S2 - GI/Abdominal Exam GI & Abdominal Exam: Soft, Normal Bowel Sounds. absent: Tenderness - Extremities Exam Extremities Exam: Full ROM, Normal Capillary Refill. absent: Calf Tenderness - Back Exam Back Exam: absent: CVA tenderness (L), CVA tenderness (R) - Neurological Exam Neurological Exam: Alert, Awake Additional comments: oriented to person and place follows simple commands - Psychiatric Exam Psychiatric exam: Flat Affect, Normal Mood - Skin Skin Exam: Dry, Normal Color, Warm Assessment and Plan - Assessment and Plan (Free Text) Assessment: 57 yo M with pmhx of DM2, bipolar Disorder presented to the ED with abd pain, nausea and vomiting. EKG showed ST elevation V4,V5,V6. Troponin elevated. 1) Acute [place] - EKG: ST elevation; consider Rogerio-lateral injury or acute infarct - Troponins: 3.77>16.90>32.10 today 11.8 - ECHO: Systolic function severely impaired; severely hypokinetic apex/ anterior wall - Cardiology: Dr. Martinez: EKG: evolving T inversion at V3 and V4, which is expected s/p AMI. -Continue Beta Sadie, ASA, Plavix and therapeutic Lovenox 2) Bipolar Dis with dementia - Psych: Dr. Gallegos: Recommends r/o Delirium on top of dementia; and hospital social worker to discuss with brother since pt will likely require assistance with activities of daily living. - Continue meds: Depakote 500 mg PO BID; Quetiapine 100 mg PO HS; Haldol 1mg PO Q6 PRN for agitation 3) DM2 - controlled with SSI - accucheck with insulin human lispro - DM2 appropriate diet -start low dose Glucotrol XL 2.5 mg daily - pt is on 1:1 4) Prophylaxis - DVT: Enoxaparin 80 mg sc q12
[2017-07-11] MEDS ORDERED: Potassium Chloride 20 mEq ER Tab PO ONE (09:45)
[2017-07-11] MEDS: Divalproex 500 mg DR(BID formulation) PO SCH ×2 (09:58→17:04)
[2017-07-11] MEDS ORDERED: GlipiZIDE 2.5 mg SR Tab PO SCH (13:45)
[2017-07-12 06:51] LABS: HEMOGLOBIN 12.4 g/dL (12.0-18.0); MEAN CELL VOLUME 85.5 fl (80.0-94.0); MEAN CORPUSCULAR HGB CONC 33.9 g/dL (33.0-37.0); RBC 4.27 Mil/uL (4.40-5.90); RED CELL DISTRIBUTION WIDTH 13.2 % (11.5-14.5); WHITE BLOOD COUNT 4.6 K/uL (4.8-10.8)
[2017-07-12 07:25] LABS: BLOOD UREA NITROGEN 10 mg/dl (9-20); CALCIUM 8.5 mg/dL (8.4-10.2); GFR AFRICAN-AMERICAN > 60; GFR NON-AFRICAN AMERICAN > 60
[2017-07-12] MEDS ORDERED: Potassium Chloride 20 mEq ER Tab PO ONE (07:45)
[2017-07-12] MEDS: Divalproex 500 mg DR(BID formulation) PO SCH ×3 (08:41→18:24)
[2017-07-12] MEDS: Enoxaparin 80 mg Syringe SC SCH ×2 (08:45→21:45)
[2017-07-12] MEDS: Insulin Lispro (humaLOG) 100 Units/ml Inj SC SCH ×4 (08:48→21:44)
--- NOTE | 2017-07-12 11:55 | CP.PCM.PN ---
Subjective - Date & Time of Evaluation Date of Evaluation: 07/12/17 Time of Evaluation: 11:15 - Subjective Subjective: Pt is alert, oriented to person however according to staff, got agiated earlier and wanted to leave . He follows simple commands however cannot initiate an action on his own - needs to be shown how to do things. did not want to eat breakfast this morning noted to eat food with his hands instead of utensils. Gait is stable denies CP no SOB no abd pain Objective - Vital Signs/Intake and Output Vital Signs (last 24 hours): Temp Pulse Resp BP Pulse Ox 97.1 F L 84 18 108/68 99 07/12/17 08:37 07/12/17 09:00 07/12/17 08:37 07/12/17 08:44 07/12/17 08:37 - Medications Medications: Current Medications Acetaminophen (Tylenol 325mg Tab) 650 mg PO Q6 PRN PRN Reason: Pain, Mild (1-3) Aspirin (Aspirin) 325 mg PO DAILY [facility] Last Admin: 07/12/17 08:49 Dose: 325 mg Atorvastatin Calcium (Lipitor) 80 mg PO DAILY [facility] Last Admin: 07/12/17 08:41 Dose: 80 mg Clopidogrel Bisulfate (Plavix) 75 mg PO DAILY [facility] Last Admin: 07/12/17 08:41 Dose: 75 mg Divalproex Sodium (Depakote Dr(*Bid*)) 500 mg PO BID [facility] Last Admin: 07/12/17 08:41 Dose: 500 mg Folic Acid (Folic Acid) 1 mg PO DAILY [facility] Last Admin: 07/12/17 08:41 Dose: 1 mg Haloperidol (Haldol) 1 mg PO Q6 PRN PRN Reason: Agitation Last Admin: 07/12/17 08:59 Dose: 1 mg Insulin Human Lispro (Humalog) 0 units SC ACHS [facility] PRN Reason: Protocol Last Admin: 07/12/17 08:48 Dose: Not Given Metoprolol Tartrate (Lopressor) 25 mg PO Q12 [facility] Last Admin: 07/12/17 08:44 Dose: 25 mg Ondansetron HCl (Zofran Inj) 4 mg IVP Q6 PRN PRN Reason: Nausea/Vomiting Quetiapine Fumarate (Seroquel) 100 mg PO HS [facility] Last Admin: 07/11/17 22:44 Dose: 100 mg Thiamine HCl (Vitamin B1 Tab) 100 mg PO DAILY [facility] Last Admin: 07/12/17 08:41 Dose: 100 mg - Labs Labs: 07/12/17 06:00 07/12/17 06:00 PT 12.2 Seconds (9.8-13.1) 07/09/17 10:25 INR 1.1 (0.9-1.2) 07/09/17 10:25 APTT 36.1 Seconds (25.6-37.1) 07/09/17 10:25 - Constitutional Appears: No Acute Distress - Head Exam Head Exam: NORMAL INSPECTION, NORMOCEPHALIC - Eye Exam Eye Exam: EOMI, Normal appearance Pupil Exam: NORMAL ACCOMODATION - ENT Exam ENT Exam: Mucous Membranes Moist, Normal External Ear Exam - Neck Exam Neck Exam: Full ROM. absent: Meningismus - Respiratory Exam Respiratory Exam: NORMAL BREATHING PATTERN. absent: Respiratory Distress - Cardiovascular Exam Cardiovascular Exam: REGULAR RHYTHM, +S1, +S2 - GI/Abdominal Exam GI & Abdominal Exam: Soft, Normal Bowel Sounds. absent: Tenderness - Extremities Exam Extremities Exam: Full ROM, Normal Capillary Refill. absent: Calf Tenderness - Back Exam Back Exam: absent: CVA tenderness (L), CVA tenderness (R) - Neurological Exam Neurological Exam: Alert, Awake Additional comments: oriented to person follows simple commands - Psychiatric Exam Psychiatric exam: Flat Affect, Normal Mood - Skin Skin Exam: Dry, Normal Color, Warm Assessment and Plan - Assessment and Plan (Free Text) Assessment: 57 yo M with pmhx of DM2, bipolar Disorder presented to the ED with abd pain, nausea and vomiting. EKG showed ST elevation V4,V5,V6. Troponin elevated. Pt is being managed medically . 1) Acute [place] - EKG: ST elevation; consider Rogerio-lateral injury or acute infarct - Troponins: 3.77>16.90>32.10 > 11.8 today 6 - ECHO: Systolic function severely impaired; severely hypokinetic apex/ anterior wall - Cardiology: Dr. Martinez: EKG: evolving T inversion at V3 and V4, which is expected s/p AMI. -Continue Beta Sadie, ASA, Plavix and therapeutic Lovenox 2) Bipolar Dis with dementia - Psych: Dr. Gallegos: r/o Delirium on top of dementia -pt will likely require assistance with activities of daily living - Continue meds: Depakote 500 mg PO BID; Quetiapine 100 mg PO HS; Haldol 1mg PO Q6 PRN for agitation - Pt is on 1:1 for safety 3) DM2 - controlled with SSI - accucheck with insulin human lispro - DM2 appropriate diet - d/c low dose Glucotrol - pt did not want to eat this am ( low normal glucose) 4) Prophylaxis - DVT: Enoxaparin 80 mg sc q12
[2017-07-13 00:14] VITALS: RESP 18
[2017-07-13 05:34] LABS: HEMOGLOBIN 12.8 g/dL (12.0-18.0); MEAN CELL VOLUME 85.9 fl (80.0-94.0); MEAN CORPUSCULAR HEMOGLOBIN 29.2 pg (27.0-31.0); RBC 4.4 Mil/uL (4.40-5.90); RED CELL DISTRIBUTION WIDTH 13.2 % (11.5-14.5); WHITE BLOOD COUNT 4.3 K/uL (4.8-10.8)
[2017-07-13 05:57] LABS: BLOOD UREA NITROGEN 5 mg/dl (9-20); CALCIUM 8.8 mg/dL (8.4-10.2); GFR AFRICAN-AMERICAN > 60; GFR NON-AFRICAN AMERICAN > 60; MAGNESIUM 1.8 MG/DL (1.6-2.3)
[2017-07-13] MEDS: Divalproex 500 mg DR(BID formulation) PO SCH (08:42)
[2017-07-13] MEDS: Insulin Lispro (humaLOG) 100 Units/ml Inj SC SCH ×2 (08:44→13:34)
[2017-07-13] MEDS: Enoxaparin 80 mg Syringe SC SCH (08:47)
--- NOTE | 2017-07-13 09:14 | CP.PCM.PN ---
Subjective - Date & Time of Evaluation Date of Evaluation: 07/13/17 Time of Evaluation: 09:00 - Subjective Subjective: Clinically unchanged Still very confused, disoriented Unable to comprehend his surroundings Quite free of any discomfort, sitting at the edge of his bed Telemetry shows steady sinus rhythm at physiologic rates BP 110/70 mm Hg JVP flat, no rales no gallop Labs noted BUN/ Creatinin stable, electrolytes stable Acute phase of an STEMI has been tolerated well Pt is not competent to consent cath/PCI procedures His brother has indicated, he wishes to bring the pt home Dr. Soria will talk this over with pt's brother who is his assistant child care teacher Clinically stable on present Rx Objective - Vital Signs/Intake and Output Vital Signs (last 24 hours): Temp Pulse Resp BP Pulse Ox 98.3 F 79 18 106/72 98 07/13/17 07:45 07/13/17 07:45 07/13/17 07:45 07/13/17 08:44 07/13/17 07:45 - Medications Medications: Current Medications Acetaminophen (Tylenol 325mg Tab) 650 mg PO Q6 PRN PRN Reason: Pain, Mild (1-3) Aspirin (Aspirin) 325 mg PO DAILY [facility] Last Admin: 07/13/17 08:41 Dose: 325 mg Atorvastatin Calcium (Lipitor) 80 mg PO DAILY [facility] Last Admin: 07/13/17 08:43 Dose: 80 mg Clopidogrel Bisulfate (Plavix) 75 mg PO DAILY [facility] Last Admin: 07/13/17 08:45 Dose: 75 mg Divalproex Sodium (Depakote Dr(*Bid*)) 500 mg PO BID [facility] Last Admin: 07/13/17 08:42 Dose: 500 mg Enoxaparin Sodium (Lovenox) 80 mg SC Q12 [facility] PRN Reason: Protocol Last Admin: 07/13/17 08:47 Dose: 80 mg Folic Acid (Folic Acid) 1 mg PO DAILY [facility] Last Admin: 07/13/17 08:42 Dose: 1 mg Haloperidol (Haldol) 1 mg PO Q6 PRN PRN Reason: Agitation Last Admin: 07/13/17 08:44 Dose: 1 mg Insulin Human Lispro (Humalog) 0 units SC ACHS [facility] PRN Reason: Protocol Last Admin: 07/13/17 08:44 Dose: Not Given Metoprolol Tartrate (Lopressor) 25 mg PO Q12 [facility] Last Admin: 07/13/17 08:44 Dose: Not Given Ondansetron HCl (Zofran Inj) 4 mg IVP Q6 PRN PRN Reason: Nausea/Vomiting Quetiapine Fumarate (Seroquel) 100 mg PO HS [facility] Last Admin: 07/12/17 21:46 Dose: 100 mg Thiamine HCl (Vitamin B1 Tab) 100 mg PO DAILY [facility] Last Admin: 07/13/17 08:42 Dose: 100 mg - Labs Labs: 07/13/17 05:10 07/13/17 05:10 PT 12.2 Seconds (9.8-13.1) 07/09/17 10:25 INR 1.1 (0.9-1.2) 07/09/17 10:25 APTT 36.1 Seconds (25.6-37.1) 07/09/17 10:25
--- NOTE | 2017-07-13 09:37 | CP.PCM.DIS ---
Provider - Provider Date of Admission: 07/09/17 06:10 Attending physician: Donnie Calderon MD Primary care physician: Freddy Marino MD Consults: Cardio: Dr Martinez Time Spent in preparation of Discharge (in minutes): 35 Diagnosis - Discharge Diagnosis (1) STEMI (ST elevation myocardial infarction) Status: Acute (2) Bipolar 1 disorder Status: Chronic Priority: Low (3) DM2 (diabetes mellitus, type 2) Status: Chronic (4) Hypertension Status: Suspected Priority: Low Hospital Course - Lab Results Lab Results: Most Recent Lab Values WBC 4.3 K/uL (4.8-10.8) L 07/13/17 05:10 RBC 4.40 Mil/uL (4.40-5.90) 07/13/17 05:10 Hgb 12.8 g/dL (12.0-18.0) 07/13/17 05:10 Hct 37.8 % (35.0-51.0) 07/13/17 05:10 MCV 85.9 fl (80.0-94.0) 07/13/17 05:10 MCH 29.2 pg (27.0-31.0) 07/13/17 05:10 MCHC 34.0 g/dL (33.0-37.0) 07/13/17 05:10 RDW 13.2 % (11.5-14.5) 07/13/17 05:10 Plt Count 202 K/uL (130-400) 07/13/17 05:10 MPV 8.9 fl (7.2-11.7) 07/09/17 04:32 Neut % (Auto) 84.6 % (50.0-75.0) H 07/09/17 04:32 Lymph % (Auto) 10.5 % (20.0-40.0) L 07/09/17 04:32 [place] % (Auto) 4.2 % (0.0-10.0) 07/09/17 04:32 Eos % (Auto) 0.3 % (0.0-4.0) 07/09/17 04:32 Baso % (Auto) 0.4 % (0.0-2.0) 07/09/17 04:32 Neut # (Auto) 9.5 K/uL (1.8-7.0) H 07/09/17 04:32 Lymph # (Auto) 1.2 K/uL (1.0-4.3) 07/09/17 04:32 [place] # (Auto) 0.5 K/uL (0.0-0.8) 07/09/17 04:32 Eos # (Auto) 0.0 K/uL (0.0-0.7) 07/09/17 04:32 Baso # (Auto) 0.0 K/uL (0.0-0.2) 07/09/17 04:32 PT 12.2 Seconds (9.8-13.1) 07/09/17 10:25 INR 1.1 (0.9-1.2) 07/09/17 10:25 APTT 36.1 Seconds (25.6-37.1) 07/09/17 10:25 Sodium 135 mmol/l (132-148) 07/13/17 05:10 Potassium 3.8 MMOL/L (3.6-5.0) 07/13/17 05:10 Chloride 98 mmol/L (98-107) 07/13/17 05:10 Carbon Dioxide 22 mmol/L (22-30) 07/13/17 05:10 Anion Gap 19 (10-20) 07/13/17 05:10 BUN 5 mg/dl (9-20) L 07/13/17 05:10 Creatinine 0.6 mg/dl (0.8-1.5) L 07/13/17 05:10 Est GFR ( Amer) > 60 07/13/17 05:10 Est GFR (Non-Af Amer) > 60 07/13/17 05:10 POC Glucose (mg/dL) 106 mg/dL (65-110) 07/13/17 06:04 Random Glucose 81 mg/dL (75-110) 07/13/17 05:10 Calcium 8.8 mg/dL (8.4-10.2) 07/13/17 05:10 Magnesium 1.8 MG/DL (1.6-2.3) 07/13/17 05:10 Total Bilirubin 0.7 mg/dl (0.2-1.3) 07/09/17 04:32 AST 49 U/L (17-59) 07/09/17 04:32 ALT 29 U/L (21-72) 07/09/17 04:32 Alkaline Phosphatase 56 U/L (38-126) 07/09/17 04:32 Troponin I 4.7100 ng/mL (0.00-0.120) H* 07/13/17 05:10 Total Protein 7.7 G/DL (6.3-8.2) 07/09/17 04:32 Albumin 4.3 g/dL (3.5-5.0) 07/09/17 04:32 Globulin 3.4 gm/dL (2.2-3.9) 07/09/17 04:32 Albumin/Globulin Ratio 1.3 (1.0-2.1) 07/09/17 04:32 Lipase 48 U/L (23-300) 07/09/17 04:32 Urine Color Yellow (YELLOW) 07/09/17 04:19 Urine Clarity Clear (Clear) 07/09/17 04:19 Urine pH 6.0 (5.0-8.0) 07/09/17 04:19 Ur Specific [place] 1.014 (1.003-1.030) 07/09/17 04:19 Urine Protein Negative mg/dL (NEGATIVE) 07/09/17 04:19 Urine Glucose (UA) >=500 mg/dL (Normal) 07/09/17 04:19 Urine Ketones Negative mg/dL (NEGATIVE) 07/09/17 04:19 Urine Blood Negative (NEGATIVE) 07/09/17 04:19 Urine Nitrate Negative (NEGATIVE) 07/09/17 04:19 Urine Bilirubin Negative (NEGATIVE) 07/09/17 04:19 Urine Urobilinogen 0.2-1.0 mg/dL (0.2-1.0) 07/09/17 04:19 Ur Leukocyte Esterase Neg [place]/uL (Negative) 07/09/17 04:19 Urine RBC (Auto) 2 /hpf (0-3) 07/09/17 04:19 Urine Microscopic WBC < 1 /hpf (0-5) 07/09/17 04:19 Urine Opiates Screen Negative (NEGATIVE) 07/09/17 04:19 Urine Methadone Screen Negative (NEGATIVE) 07/09/17 04:19 Ur Barbiturates Screen Negative (NEGATIVE) 07/09/17 04:19 Ur Phencyclidine Scrn Negative (NEGATIVE) 07/09/17 04:19 Ur Amphetamines Screen Negative (NEGATIVE) 07/09/17 04:19 U Benzodiazepines Scrn Negative (NEGATIVE) 07/09/17 04:19 U Oth Cocaine Metabols Negative (NEGATIVE) 07/09/17 04:19 U Cannabinoids Screen Negative (NEGATIVE) 07/09/17 04:19 Alcohol, Quantitative < 10 mg/dl (0-10) 07/09/17 04:32 - Hospital Course Hospital Course: 57 yo M with pmhx of DM2, bipolar Disorder presented to the ED with abd pain, nausea and vomiting. EKG showed ST elevation V4,V5,V6. Troponin elevated. Cardio was consulted and pt was started on therapeutic Lovenox, Plavix, ASA, Statin and BB. Patient has Bipolar Disorder , is confused and is not capable of making decisions, discussed case with his brother Jose who is his Surrogate decision maker and he did not want any aggressive mgt. Discussed Cardiac Catheterization , including benefits/risk and he refused and wants his brother to be managed only mediaclly. Pt has been stable while in the hospital. He was monitored closely in Telemetry. He denies any CP, no SOB. His Troponin trended down from 32 to 4. 1) Acute IN/STEMI - EKG: ST elevation; consider Rogerio-lateral injury or acute infarct - Troponins: 3.77>16.90>32.10 > 11.8 today 4 - ECHO: Systolic function severely impaired; severely hypokinetic apex/ anterior wall - Cardiology: Dr. Martinez: EKG: evolving T inversion at V3 and V4, which is expected s/p AMI. -Continue Beta Sadie, ASA, Plavix and therapeutic Lovenox - Brother ( surrogate ) refused Cardiac cath - will d/c pt home on ASA, Plavix , BB and Statin 2) Bipolar Dis with dementia - Psych: Dr. Gallegos -pt will likely require assistance with activities of daily living - Continue meds: Depakote 500 mg PO BID; Quetiapine 100 mg PO HS - Pt was on 1:1 for safety while in the hospital - ff up with own Psychiatrist mikey 3) DM2 - controlled with DM diet - accucheck with insulin human lispro 4) Prophylaxis - DVT: Enoxaparin 80 mg sc q12 Discharge Exam - Head Exam Head Exam: ATRAUMATIC, NORMAL INSPECTION, NORMOCEPHALIC - Eye Exam Eye Exam: EOMI, Normal appearance, PERRL Pupil Exam: NORMAL ACCOMODATION - ENT Exam ENT Exam: Mucous Membranes Moist, Normal External Ear Exam - Neck Exam Neck exam: Full Rom - Respiratory Exam Respiratory Exam: NORMAL BREATHING PATTERN. absent: Respiratory Distress - Cardiovascular Exam Cardiovascular Exam: REGULAR RHYTHM, +S1, +S2 - GI/Abdominal Exam GI & Abdominal Exam: Normal Bowel Sounds, Soft. absent: Tenderness - Extremities Exam Extremities exam: full ROM, normal capillary refill, pedal pulses present - Back Exam Back exam: FULL ROM. absent: CVA tenderness (L), CVA tenderness (R) - Neurological Exam Neurological exam: Alert, CN II-XII Intact, Normal Gait, Reflexes Normal Additional comments: oriented to person and place - Psychiatric Exam Psychiatric exam: Normal Affect, Normal Mood - Skin Skin Exam: Dry, Normal Color, Warm Discharge Plan - Discharge Medications Prescriptions: Atorvastatin [Lipitor] 40 mg PO DAILY #30 tab Clopidogrel [Plavix] 75 mg PO DAILY #30 tab Metoprolol Tartrate [Lopressor] 25 mg PO Q12 #60 tab - Follow Up Plan Condition: GOOD Disposition: HOME/ ROUTINE Instructions: Heart Attack (DC), Chest Pain (DC) Additional Instructions: ff up with Dr Ned jensen this week ff up with Psych mikey Referrals: Pepe Martinez MD [Staff Provider] - Freddy Marino MD [Primary Care Provider] -
[2017-07-13 12:04] VITALS: BP 113/75; PULSE 77; TEMP 98; O2SAT 100
== END 2017-07-13 14:50 | disposition home or self-care (01) | DRG 281 ==
LOC: H.ER 02:10 → H.ERHOLD 06:10 → H.TEL 09:43
PROVIDERS: ADMIT Internal Medicine; ATTEND Internal Medicine
PROC: 3E0234Z Introduction of Serum, Toxoid and Vaccine into Muscle, Percutaneous Approach (ICD-10-PCS; principal; 2017-07-09)
DX: I21.09 ST elevation (STEMI) myocardial infarction involving other coronary artery of anterior wall (principal); F03.91 Unspecified dementia, unspecified severity, with behavioral disturbance; E11.9 Type 2 diabetes mellitus without complications; G35 Multiple sclerosis; F31.9 Bipolar disorder, unspecified; I10 Essential (primary) hypertension; Z23 Encounter for immunization; Z53.8 Procedure and treatment not carried out for other reasons

== ENCOUNTER 2017-10-29 10:58 | Emergency (ER) | payer MEDICARE, OTHER ==
[2017-10-29 11:36] VITALS: BMI 28.2
[2017-10-29] MEDS ORDERED: Sodium Chloride 0.9% 1,000 ML IV STA (12:27)
--- NOTE | 2017-10-29 13:31 | ED PDOC ---
HPI: Altered Mental Status Time Seen by Provider: 10/29/17 11:08 Chief Complaint (Nursing): Altered Mental Status Chief Complaint (Provider): Altered Mental Status History Per: Patient, EMS History/Exam Limitations: None Onset/Duration Of Symptoms: Other Current Symptoms Are (Timing): Still Present Additional Complaint(s): 57 y/o male brought in by EMS. Per EMS the super for the apartment building called 911 when the patient couldn't get into his apartment and couldn't find his brother. Patient is without active complaints. Past Medical History Reviewed: Historical Data, Nursing Documentation, Vital Signs Vital Signs: Last Vital Signs Temp 98.1 F 10/29/17 11:01 Pulse 98 H 10/29/17 12:08 Resp 17 10/29/17 11:01 BP 137/82 10/29/17 11:01 Pulse Ox 99 10/29/17 11:01 - Medical History PMH: Bipolar Disorder, Dementia, Multiple Sclerosis Denies: Diabetes, Hepatitis, HIV, HTN, Chronic Kidney Disease, Seizures, Sexually Transmitted Disease - Surgical History Surgical History: No Surg Hx - Family History Family History: States: Unknown Family Hx - Immunization History Hx Tetanus Toxoid Vaccination: No Hx Influenza Vaccination: No Hx Pneumococcal Vaccination: No - Home Medications Home Medications: Ambulatory Orders Medication Instructions Recorded Atorvastatin [Lipitor] 40 mg PO HS 10/29/17 Celecoxib [celeBREX] 200 mg PO DAILY 10/29/17 Clopidogrel [Plavix] 75 mg PO DAILY 10/29/17 Doxepin [Sinequan] 50 mg PO HS 10/29/17 Ergocalciferol (Vitamin D2) 50,000 unit PO QWK 10/29/17 [Vitamin D2] Insulin Lispro Mix 75/25 [HumaLOG 20 unit SC BID 10/29/17 Mix 75/25] Metoprolol Succinate XL [Toprol XL] 25 mg PO DAILY 10/29/17 OLANZapine [Zyprexa] 10 mg PO HS 10/29/17 Quetiapine Fumarate [Quetiapine 400 mg PO Q12 10/29/17 Fumarate ER] Rivastigmine 9.5 mg/24 hr [Exelon 1 patch TD DAILY 10/29/17 9.5 mg/24 hr Patch] Valsartan [Diovan] 80 mg PO DAILY 10/29/17 metFORMIN [glucOPHAGE] 500 mg PO BID 10/29/17 - Allergies Allergies/Adverse Reactions: Allergies Allergy/AdvReac Type Severity Reaction Status Date / Time No Known Allergies Allergy Verified 11/22/15 14:24 Review of Systems ROS Statement: Except As Marked, All Systems Reviewed And Found Negative Physical Exam - Reviewed Nursing Documentation Reviewed: Yes Vital Signs Reviewed: Yes - Physical Exam Appears: Positive for: Non-toxic, No Acute Distress Head Exam: Positive for: ATRAUMATIC, NORMAL INSPECTION, NORMOCEPHALIC Skin: Positive for: Normal Color, Warm, Dry. Negative for: Rash Eye Exam: Positive for: Normal appearance Neck: Positive for: Normal, Painless ROM Cardiovascular/Chest: Positive for: Regular Rate, Rhythm. Negative for: Murmur Respiratory: Positive for: Normal Breath Sounds. Negative for: Respiratory Distress Extremity: Positive for: Normal ROM Neurologic/Psych: Positive for: Alert, bulb sorter II-XII (intact), Oriented (x1), Cerebellar Tests (normal). Negative for: Motor/Sensory Deficits, Aphasia, Facial Droop - Laboratory Results Result Diagrams: 10/29/17 14:55 10/29/17 14:55 - ECG O2 Sat by Pulse Oximetry: 99 (RA) Pulse Ox Interpretation: Normal Medical Decision Making Medical Decision Making: Initial Impression: Confusion Plan: --EKG --Alcohol serum --CMP --Urine dipstick --CBC --1LNS --Glucose, Blood, POC --Urinalysis --Reevaluation Upon review of old records, patient's current state appears to be baseline mental status. Contacted patient's brother Jose who confirmed this is patient' s baseline. Brother states he's at work, but will try to pick the patient up. Scribe Attestation: Documented by Bienvenido Malin, acting as a scribe for Lalita Berry MD. Provider Scribe Attestation: All medical record entries made by the Scribe were at my direction and personally dictated by me. I have reviewed the chart and agree that the record accurately reflects my personal performance of the history, physical exam, medical decision making, and the department course for this patient. I have also personally directed, reviewed, and agree with the discharge instructions and disposition. Disposition - Clinical Impression Clinical Impression: Confusion - Disposition Referrals: Freddy Marino MD [Family Provider] - (FOLLOW UP WITH YOUR PCP IN 2-3 DAYS FOR REEVALUATION) Disposition Time: 15:00 Condition: GOOD Additional Instructions: CONTINUE ALL YOUR MEDICATIONS PRESCRIBED Instructions: Altered Mental Status Forms: [employer] (Macedonian) Patient Signed Over To: Martha Novak
[2017-10-29 14:58] LABS: BASO # 0.1 K/uL (0.0-0.2); BASO % 1.1 % (0.0-2.0); EOS # 0.1 K/uL (0.0-0.7); EOS % 1.6 % (0.0-4.0); HEMOGLOBIN 13.9 g/dL (12.0-18.0); LYMPH % 31.1 % (20.0-40.0); MEAN CELL VOLUME 87.4 fl (80.0-94.0); MEAN CORPUSCULAR HEMOGLOBIN 29.3 pg (27.0-31.0); MEAN CORPUSCULAR HGB CONC 33.5 g/dL (33.0-37.0); MONO # 0.4 K/uL (0.0-0.8); MONO % 5.9 % (0.0-10.0); NEUT # 3.9 K/uL (1.8-7.0); NEUT % 60.3 % (50.0-75.0); NRBC % 0.2 % (0.0-0.0); RBC 4.76 Mil/uL (4.40-5.90); RED CELL DISTRIBUTION WIDTH 13.5 % (11.5-14.5); WHITE BLOOD COUNT 6.5 K/uL (4.8-10.8)
[2017-10-29 15:14] LABS: ALB/GLOB RATIO 1.2 (1.0-2.1); ALBUMIN 4.3 g/dL (3.5-5.0); ALT/SGPT 25 U/L (21-72); AST/SGOT 23 U/L (17-59); BLOOD UREA NITROGEN 4 mg/dl (9-20); CALCIUM 8.9 mg/dL (8.4-10.2); GFR AFRICAN-AMERICAN > 60; GFR NON-AFRICAN AMERICAN > 60
[2017-10-29 15:16] LABS: URINE BILIRUBIN NEGATIVE (NEGATIVE); URINE BLOOD NEGATIVE (NEGATIVE); URINE CLARITY CLEAR (Clear); URINE COLOR COLORLESS (YELLOW); URINE GLUCOSE (UA) >=500 mg/dL (Normal); URINE LEUKOCYTE ESTERASE NEG Leu/uL (Negative); URINE PROTEIN NEGATIVE (NEGATIVE); URINE UROBILINOGEN 0.2-1.0 mg/dL (0.2-1.0)
--- NOTE | 2017-10-29 15:34 | ED PDOC ---
- Laboratory Results Result Diagrams: 10/29/17 14:55 10/29/17 14:55 - ECG O2 Sat by Pulse Oximetry: 99 (RA) Medical Decision Making Medical Decision Making: -- Patient endorsed to me by Dr. Berry at 1500. Patient appears with confusion of which is baseline according to the family. Labs within normal limits. 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 350p Family in ER, confirming patient's mental status is at baseline currently. Labs unremarkable. Pt stable for discharge. Scribe Attestation: Documented by Clinton Pedroza, acting as a scribe for Dr. Martha Novak. Provider Scribe Attestation: All medical record entries made by the Scribe were at my direction and personally dictated by me. I have reviewed the chart and agree that the record accurately reflects my personal performance of the medical decision making, and the department course for this patient. I have also personally directed, reviewed, and agree with the discharge instructions and disposition. Disposition - Clinical Impression Clinical Impression: Confusion - POA Present On Arrival: None - Disposition Referrals: Freddy Marino MD [Staff Provider] - (FOLLOW UP WITH YOUR PCP IN 2-3 DAYS FOR REEVALUATION) Disposition: Routine/Home Disposition Time: 15:47 Condition: GOOD Additional Instructions: CONTINUE ALL YOUR MEDICATIONS PRESCRIBED Instructions: Altered Mental Status Forms: [employer] (Tuvaluan)
[2017-10-29 16:13] VITALS: BP 130/93; PULSE 87; RESP 16; TEMP 97.8
--- NOTE | 2017-10-30 11:03 | CARD ---
APPROVED REPORT EKG Measurement Heart [id number] <Conclusion> Sinus tachycardia Otherwise normal ECG
[2017-11-02 14:51] VITALS: O2SAT 99
== END 2017-10-29 16:29 | disposition home or self-care (01) ==
LOC: H.ER 10:58 → MERGE 10:58 → H.ER 16:29
DX: R41.0 Disorientation, unspecified (principal); F03.90 Unspecified dementia, unspecified severity, without behavioral disturbance, psychotic disturbance, mood disturbance, and anxiety; F31.9 Bipolar disorder, unspecified; G35 Multiple sclerosis; Z79.4 Long term (current) use of insulin
CPT/HCPCS: 80053; 81003; 82948; 85025; 93005; 99284; G0480

== ENCOUNTER 2018-08-28 12:27 | Emergency (ER) | payer MEDICARE, OTHER ==
[2018-08-28 12:31] VITALS: BMI 25.8
[2018-08-28 12:32] VITALS: O2SAT 98
[2018-08-28] MEDS ORDERED: Tdap Vaccine 0.5 ml Vial (10-64 yrs) IM ONE (13:12)
--- NOTE | 2018-08-28 13:23 | ED PDOC ---
HPI: Trauma/Fall - HPI Time Seen by Provider: 08/28/18 13:13 Chief Complaint (Nursing): Headache Chief Complaint (Provider): s/p fall History Per: Other (homemaker) Injury Occurred (Timing): Just Before Arrival Location Of Injury: Posterior: Head Additional Complaint(s): 58 year old male with a history of diabetes and dementia presents to the ED status post witnessed fall. Homemaker states patient peed his pants and she had tried to quickly wash them. As she was walking back up the stairs she saw him already walking when he slipped on stairs, hitting the back of his head. He is at normal baseline as per homemaker. Unclear tetanus status. Patient has no other ongoing illnesses this week. PMD: none provided - Fall Fall:Prior To Injury: Slipped Past Medical History Reviewed: Historical Data, Nursing Documentation, Vital Signs Vital Signs: Last Vital Signs Temp 97.4 F L 08/28/18 12:31 Pulse 86 08/28/18 12:31 Resp 17 08/28/18 12:31 BP 154/80 H 08/28/18 12:31 Pulse Ox 98 08/28/18 12:35 - Medical History PMH: Bipolar Disorder, Dementia, Diabetes, Multiple Sclerosis Denies: Hepatitis, HIV, HTN, Chronic Kidney Disease, Seizures, Sexually Transmitted Disease - Family History Family History: States: Unknown Family Hx - Immunization History Hx Tetanus Toxoid Vaccination: No Hx Influenza Vaccination: No Hx Pneumococcal Vaccination: No - Home Medications Home Medications: Ambulatory Orders Medication Instructions Recorded Atorvastatin [Lipitor] 40 mg PO HS 10/29/17 Celecoxib [celeBREX] 200 mg PO DAILY 10/29/17 Clopidogrel [Plavix] 75 mg PO DAILY 10/29/17 Doxepin [Sinequan] 50 mg PO HS 10/29/17 Ergocalciferol (Vitamin D2) 50,000 unit PO QWK 10/29/17 [Vitamin D2] Insulin Lispro Mix 75/25 [HumaLOG 20 unit SC BID 10/29/17 Mix 75/25] Metoprolol Succinate XL [Toprol XL] 25 mg PO DAILY 10/29/17 OLANZapine [Zyprexa] 10 mg PO HS 10/29/17 Quetiapine Fumarate [Quetiapine 400 mg PO Q12 10/29/17 Fumarate ER] Rivastigmine 9.5 mg/24 hr [Exelon 1 patch TD DAILY 10/29/17 9.5 mg/24 hr Patch] Valsartan [Diovan] 80 mg PO DAILY 10/29/17 metFORMIN [glucOPHAGE] 500 mg PO BID 10/29/17 - Allergies Allergies/Adverse Reactions: Allergies Allergy/AdvReac Type Severity Reaction Status Date / Time No Known Allergies Allergy Verified 08/28/18 12:35 Review of Systems ROS Statement: Except As Marked, All Systems Reviewed And Found Negative Neurological: Positive for: Altered Mental Status Physical Exam - Reviewed Nursing Documentation Reviewed: Yes Vital Signs Reviewed: Yes - Physical Exam Appears: Positive for: No Acute Distress Skin: Positive for: Normal Color, Warm, Dry Eye Exam: Positive for: Normal appearance, EOMI, PERRL Neck: Positive for: Normal (no C-spine tenderness) Cardiovascular/Chest: Positive for: Chest Non Tender Gastrointestinal/Abdominal: Negative for: Tenderness Extremity: Positive for: Normal ROM (upper and lower) Neurological/Psych: Positive for: Other (altered mental status baseline for patient, no facial weakness, patient responding to verbal commands,) Comments: HEAD: abrasion noted to right frontal region - ECG O2 Sat by Pulse Oximetry: 98 (RA) Pulse Ox Interpretation: Normal Medical Decision Making Medical Decision Making: Time: 1311 Plan: --CT cervical spine --CT head w/o contrast --CT maxillofacial --Tetanus Time: 1522 CT Head: FINDINGS: HEMORRHAGE: No intracranial hemorrhage. BRAIN: No mass effect or edema. Atrophy. Chronic microvascular ischemic changes. VENTRICLES: Prominent. No hydrocephalus. CALVARIUM: Unremarkable. PARANASAL SINUSES: Unremarkable as visualized. No significant inflammatory changes. MASTOID AIR CELLS: Unremarkable as visualized. No inflammatory changes. OTHER FINDINGS: None. IMPRESSION: No acute intracranial pathology. Age-related changes. No significant interval change. Time: 152 CT Cervical Spine FINDINGS: VERTEBRAE: No fracture. Reversal of the normal lordosis. No destructive bony lesion. DISCS/SPINAL CANAL/NEURAL FORAMINA: Multilevel disc space narrowing with disc osteophyte complex formation. PARASPINAL SOFT TISSUES: Unremarkable. OTHER FINDINGS: None. IMPRESSION: No acute fracture. Multilevel degenerative changes. Time: 152 CT Maxillofacial FINDINGS: NASAL BONES: Unremarkable. ORBITS: Unremarkable. PARANASAL SINUSES/ MASTOIDS: Clear. MAXILLA: Unremarkable. MANDIBLE/ TEMPOROMANDIBULAR JOINTS: Unremarkable. SKULL BASE: Unremarkable. TEMPORAL BONES: Middle ears and mastoid grossly unremarkable. OTHER FINDINGS: None. IMPRESSION: Unremarkable non contrast enhanced CT of the maxillofacial bones. Scribe Attestation: Documented by Delisa Benavidez acting as a scribe for Rocío De Paz PA-C. Provider Scribe Attestation: All medical record entries made by the Scribe were at my direction and personally dictated by me. I have reviewed the chart and agree that the record accurately reflects my personal performance of the history, physical exam, medical decision making, and the department course for this patient. I have also personally directed, reviewed, and agree with the discharge instructions and disposition. Disposition - Clinical Impression Clinical Impression: Head injury, Abrasion - Patient ED Disposition Is Patient to be Admitted: No - Disposition Disposition: Routine/Home Disposition Time: 15:30 Condition: FAIR Instructions: Closed Head Injury (DC), Skin Abrasions (DC) Print Language: KYRGYZ
--- NOTE | 2018-08-28 15:26 | CT ---
Date of service: 08/28/2018 PROCEDURE: CT HEAD WITHOUT CONTRAST. HISTORY: head injury COMPARISON: CT head dated 04/27/2016 TECHNIQUE: Axial computed tomography images were obtained through the head/brain without intravenous contrast. Radiation dose: Total exam DLP = 858.31 mGy-cm. This CT exam was performed using one or more of the following dose reduction techniques: Automated exposure control, adjustment of the mA and/or kV according to patient size, and/or use of iterative reconstruction technique. FINDINGS: HEMORRHAGE: No intracranial hemorrhage. BRAIN: No mass effect or edema. Atrophy. Chronic microvascular ischemic changes. VENTRICLES: Prominent. No hydrocephalus. CALVARIUM: Unremarkable. PARANASAL SINUSES: Unremarkable as visualized. No significant inflammatory changes. MASTOID AIR CELLS: Unremarkable as visualized. No inflammatory changes. OTHER FINDINGS: None. IMPRESSION: No acute intracranial pathology. Age-related changes. No significant interval change.
--- NOTE | 2018-08-28 15:29 | CT ---
Date of service: 08/28/2018 PROCEDURE: CT Cervical Spine without contrast HISTORY: fall/dementia/ head injury COMPARISON: None available. TECHNIQUE: Axial computed tomography images were obtained of the cervical spine without the use of intravenous contrast. Coronal and sagittal reformatted images were created and reviewed. Radiation dose: Total exam DLP = 508.47 mGy-cm. This CT exam was performed using one or more of the following dose reduction techniques: Automated exposure control, adjustment of the mA and/or kV according to patient size, and/or use of iterative reconstruction technique. FINDINGS: VERTEBRAE: No fracture. Reversal of the normal lordosis. No destructive bony lesion. DISCS/SPINAL CANAL/NEURAL FORAMINA: Multilevel disc space narrowing with disc osteophyte complex formation. PARASPINAL SOFT TISSUES: Unremarkable. OTHER FINDINGS: None. IMPRESSION: No acute fracture. Multilevel degenerative changes.
--- NOTE | 2018-08-28 15:31 | CT ---
Date of service: 08/28/2018 PROCEDURE: CT MAXILLOFACIAL BONES WITHOUT CONTRAST HISTORY: r/o fx COMPARISON: None available. TECHNIQUE: Contiguous axial CT images of the maxillofacial bones were obtained. Coronal and sagittal reformats were generated. Radiation dose: Total exam DLP = 386.18 mGy-cm. This CT exam was performed using one or more of the following dose reduction techniques: Automated exposure control, adjustment of the mA and/or kV according to patient size, and/or use of iterative reconstruction technique. FINDINGS: NASAL BONES: Unremarkable. ORBITS: Unremarkable. PARANASAL SINUSES/ MASTOIDS: Clear. MAXILLA: Unremarkable. MANDIBLE/ TEMPOROMANDIBULAR JOINTS: Unremarkable. SKULL BASE: Unremarkable. TEMPORAL BONES: Middle ears and mastoid grossly unremarkable. OTHER FINDINGS: None. IMPRESSION: Unremarkable non contrast enhanced CT of the maxillofacial bones.
[2018-08-28 16:49] VITALS: BP 123/78; PULSE 78; RESP 19; TEMP 97
== END 2018-08-28 16:49 | disposition home or self-care (01) ==
LOC: H.ER 12:27 → EDBD 12:27 → H.ER 16:49
DX: S09.90XA Unspecified injury of head, initial encounter (principal); S00.81XA Abrasion of other part of head, initial encounter; W10.9XXA Fall (on) (from) unspecified stairs and steps, initial encounter; G35 Multiple sclerosis; F03.90 Unspecified dementia, unspecified severity, without behavioral disturbance, psychotic disturbance, mood disturbance, and anxiety; Z86.59 Personal history of other mental and behavioral disorders; E11.9 Type 2 diabetes mellitus without complications; Z79.4 Long term (current) use of insulin; Z23 Encounter for immunization